=== PATIENT | male | born 1995 | race Caucasian/White ===

== ENCOUNTER 2023-11-29 06:55 | Emergency (ER) | payer MEDICAID ==
[~2023-11-29] VITALS: Ht 160 cm; Wt 122.0 kg
[2023-11-29 06:57] VITALS: BP 128/52; PULSE 93; RESP 16; TEMP 97.2; O2SAT 99
== END 2023-11-29 07:23 ==
LOC: MED 06:55
DX: Z02.89 Encounter for other administrative examinations (principal); R51.9 Headache, unspecified; V43.52XA Car driver injured in collision with other type car in traffic accident, initial encounter; Y93.89 Activity, other specified; Y92.410 Unspecified street and highway as the place of occurrence of the external cause; Y99.8 Other external cause status
CPT/HCPCS: 99283